=== PATIENT | female | born 1955 | race Caucasian/White ===

== ENCOUNTER 2018-02-03 06:18 | Day surgery (SDC) | payer OTHER ==
[~2018-02-03 06:18] MED LIST: Buffered Lidocaine 0.9% SYRIN* 5 ML/SYR SYRINGE INTRADERM ONE; Dexamethasone IV* 4 MG/ML 1 ML (4 MG) IV SLOW PU ONE; Famotidine IV* 10 MG/ML 2 ML (20 mg) IV ONE
[2018-02-03] MEDS ORDERED: Dexamethasone IV* 4 MG/ML 1 ML (4 MG) ONE (06:53)
[2018-02-03] MEDS ORDERED: Famotidine IV* 10 MG/ML 2 ML (20 mg) ONE (06:53)
[2018-02-03] MEDS ORDERED: Lidocain 1% EPI 1:100,000 * 30 ML MDV ONE (06:55)
[2018-02-03] MEDS ORDERED: Midazolam* 1 MG/ML 5 ML VIAL (5 MG) ONE (07:08)
[2018-02-03] MEDS ORDERED: fentaNYL* 50 MCG/ML 2 ML VIAL (100 MCG VIAL) ONE (07:08)
[2018-02-03] MEDS ORDERED: Ondansetron INJ* 2 MG/ML VIAL ONE (07:08)
[2018-02-03] MEDS ORDERED: Ketorolac INJ* 30 MG/ML 1 ML VIAL ONE (07:08)
[2018-02-03] MEDS ORDERED: Propofol* 10 MG/ML 20 ML BTL IV PUSH ONE (07:08)
[2018-02-03] MEDS ORDERED: Ropivacaine* 2 MG/ML 20 ML VIAL (0.2%) ONE (07:38)
[2018-02-03] MEDS ORDERED: DiMENhydriNATE IV* 50 MG/ML VIAL IV PUSH PRN (07:55)
[2018-02-03] MEDS ORDERED: Ondansetron INJ* 2 MG/ML VIAL IV PRN (07:55)
[2018-02-03] MEDS ORDERED: Naloxone* 0.4 MG/ML 1 ML VIAL IV PRN (07:55)
[2018-02-03 09:03] VITALS: BP 132/69
--- NOTE | 2018-02-03 09:47 | OP ---
OPERATIVE REPORT: DATE OF OPERATION: 02/03/18 DATE OF : 59 SURGEON: Ignacio Coates MD PROFESSIONAL ATHLETE: None. ANESTHESIOLOGIST: Dr. Colbert. ANESTHESIA: Local MAC. PRE-OP DIAGNOSES: 1. Right long trigger finger. 2. Right long finger tendon sheath mass. POST-OP DIAGNOSES: 1. Right long trigger finger. 2. Right long finger tendon sheath mass. OPERATIVE PROCEDURE: 1. Excision of right long finger tendon sheath mass. 2. Right long trigger finger release of A1 naina. INDICATIONS: Ni has a chronic trigger finger that has recurred despite injections. She has deve loped a nodule over the A1 naina that is quite large. We had talked about excising the nodule as it is quite bothersome to her and also addressing the trigger finger at the same setting. She understa nds the risks and benefits and wanted to proceed. ESTIMATED BLOOD LOSS: 2 mL. COMPLICATIONS: None. FINDINGS: See above and below. DESCRIPTION OF PROCEDURE: Ni was seen in the preoperative holding area. The correct site, side, and procedure were identified. We came back to the operating room. I infiltrated some long-acting local anesthetic. The arm was then prepped and draped in the usual fashion and a time-out was perfor med. The arm was exsanguinated with the Esmarch and the tourniquet inflated to 250 mmHg. I made an oblique incision in line with the palmar flexion crease over the A1 naina. Dissection was carried down and full-thickness flaps were raised off the tendon sheath and off the tendon sheath mass. The tendon s gena mass was excised with a combination of the knife and the tenotomy scissors and was handed off a s a specimen. I then incised the A1 naina off the right long finger. This was completed proximally and distally with a tenotomy scissors. The naina was very thickened. Once I had completely releas ed the naina and the finger was gliding smoothly, we irrigated out the wound. The skin was closed w ith 4-0 nylon suture. Soft dressings were applied. The tourniquet was deflated. She was taken to [facility] recovery room in stable condition. [id number]/[facility] #: [id number]
== END 2018-02-03 09:05 | disposition home or self-care (01) ==
LOC: OR 06:18
PROVIDERS: ATTEND Orthopaedic Surgery Hand Surgery
DX: M65.331 Trigger finger, right middle finger (principal); M67.843 Other specified disorders of tendon, right hand
CPT/HCPCS: 88304; J1100; J1885; J2250; J2405; J2704; J2795; J3010

== ENCOUNTER 2019-02-12 07:15 | Day surgery (SDC) | payer OTHER ==
[~2019-02-12 07:15] MED LIST changes: -Buffered Lidocaine 0.9% SYRIN* 5 ML/SYR SYRINGE INTRADERM ONE; +Buffered Lidocaine 1% SYRIN* 1 ML/SYRINGE INTRADERM ONE; -Dexamethasone IV* 4 MG/ML 1 ML (4 MG) IV SLOW PU ONE; -Famotidine IV* 10 MG/ML 2 ML (20 mg) IV ONE; +Lactated Ringers 1000 ML Bag* 1,000 ML IV SCH; +Sodium Citrate/Citric Acid* 15 ML UDC ONE; +Sodium Citrate/Citric Acid* 15 ML UDC PO ONE
[2019-02-12] MEDS ORDERED: ceFAZolin 2 GM PREMIX in ORs 2 GM/50 ML BAG ONE (07:24)
[2019-02-12] MEDS ORDERED: Lidocaine 1% MPF* 2 ML VIAL ONE (08:36)
[2019-02-12] MEDS ORDERED: Betamethasone INJ* 6 MG/ML 5 ML VIAL (30 MG) ONE (08:37)
[2019-02-12] MEDS ORDERED: Propofol* 10 MG/ML 20 ML BTL ONE (08:43)
[2019-02-12] MEDS ORDERED: Lidocaine 2% PF * 5 ML VIAL ONE (08:43)
[2019-02-12] MEDS ORDERED: Bupivacaine 0.25% SDV* 30 ML ONE (08:46)
[2019-02-12] MEDS ORDERED: fentaNYL* 50 MCG/ML 2 ML VIAL (100 MCG VIAL) ONE (08:56)
[2019-02-12] MEDS ORDERED: Dexamethasone IV* 4 MG/ML 1 ML (4 MG) ONE (09:09)
[2019-02-12] MEDS ORDERED: fentaNYL* 50 MCG/ML 2 ML VIAL (100 MCG VIAL) IV PRN (09:14)
[2019-02-12] MEDS ORDERED: DiMENhydriNATE IV* 50 MG/ML VIAL IV PUSH PRN (09:14)
[2019-02-12] MEDS ORDERED: Naloxone* 0.4 MG/ML 1 ML VIAL IV PRN (09:14)
[2019-02-12] MEDS ORDERED: EPHEDrine (Pressors)* 50 MG/ML VIAL ONE (09:30)
[2019-02-12] MEDS ORDERED: Ketorolac INJ* 15 MG/ML 1 ML VIAL IV PUSH ONE (10:59)
[2019-02-12] MEDS ORDERED: DiMENhydriNATE IV* 50 MG/ML VIAL ONE (11:25)
[2019-02-12 12:46] VITALS: BP 134/75
--- NOTE | 2019-02-12 14:40 | OP ---
DATE OF OPERATION: 02/12/19 - [facility] DATE OF : 59 SURGEON: Ignacio Coates MD NON FOOD RECEIVING CLERK: UMU Anton. An senior sales assistant was needed for the entirety of the procedure to aid in positioning of the arm and retraction. ANESTHESIOLOGIST: Dr. Baldwin. ANESTHESIA: General. PRE-OP DIAGNOSES: 1. Right thumb carpometacarpal degenerative joint disease. 2. Right trigger thumb. 3. Right thumb metacarpophalangeal joint hyperextension laxity. 4. Left trigger thumb. POST-OP DIAGNOSES: 1. Right thumb carpometacarpal degenerative joint disease. 2. Right trigger thumb. 3. Right thumb metacarpophalangeal joint hyperextension laxity. 4. Left trigger thumb. OPERATIVE PROCEDURE: 1. Right thumb carpometacarpal arthroplasty with trapeziectomy. 2. Right distally based split flexor carpi radialis tendon transfer with thumb suspension and tendon interposition. 3. Right trigger thumb release with release of A1 naina. 4. Right thumb metacarpophalangeal joint volar capsulodesis. 5. Left trigger thumb steroid injection. INDICATIONS: Ms. Thompson has the aforementioned conditions. She is looking to see if she can get some relief for thumb pain. I talked to her about her options as well as what we needed to do to increase the chance of having a good result with good public relations counselor strength. She understands the risk of all this and she wants to proceed. ESTIMATED BLOOD LOSS: 2 mL. COMPLICATIONS: None. FINDINGS: See above and below. DESCRIPTION OF PROCEDURE: Ms. Thompson was seen in the preoperative holding area. The correct site, side, and procedures were identified. We came back to the operating room where the arm was prepped and draped in the usual fashion and a time- out was performed. The arm was exsanguinated with the Esmarch and the tourniquet was inflated to 225 mmHg. I first made a 2 to 3 cm incision over the dorsal radial thumb base. Dissection was carried down through the subcutaneous tissue longitudinally to prevent any injury to the traversing sensory nerves. Full-thickness subperiosteal and capsular flaps were raised off the trapezium. Soft tissue about the edges of the trapezium was released. The trapezium was then excised in its entirety in a piecemeal fashion utilizing the rongeur. Once I had fully excised the trapezium, I analyzed the scapho-trapezoid joint. There was no degeneration there. I then used sequentially larger drill bit to create a bone tunnel from the dorsal radial thumb metacarpal base extending out the volar, ulnar, articular surface near the insertion of the FCR tendon onto the base of the second metacarpal. The wound was irrigated out. I then made a 1 cm transverse incision just over the FCR tendon, just proximal to the wrist flexion crease. The tendon sheath was released and the FCR tendon was brought up out of the wound. It was split longitudinally with a 15 blade and then a 26-gauge wire was passed into the tendon split. I made two more transverse wounds, each about 7 or 8 cm proximal to the last. The tendon sheath was released. A Raisa clamp was used to pass the 26-gauge wire under the skin up into the most proximal wound to release half of the FCR tendon at the musculotendinous junction. The free end of the tendon was freed up from any muscular remnants. It was then passed down into the thumb base wound using two 26-gauge wires. Tendon split was completed all the way to the base of the second metacarpal. The free end of the tendon was passed through the bone tunnel and back around the intact limb. Maximum tension was set as the tendon transfer was secured with three [id number] 3-0 Ethibond sutures, the first sewing all three limbs of the tendon transfer together, the second two sewing intact limb to intact limb. The remainder of the tendon was rolled up as a ball , secured with a stitch and then placed as an interposition just proximal to the metacarpal base. The wound was irrigated out. The capsule was closed with 4-0 Vicryl suture. All wounds were irrigated out. The skin was closed with 4- 0 nylon suture. With the arthroplasty and the tendon transfer done, I turned my attention to the MCP joint. I made a ulnarly based V-shaped flap and raised that full thickness off the tendon sheath taking care to preserve the sensory nerves. I first addressed the trigger thumb by releasing the A1 nania in its entirety utilizing the knife followed by the tenotomy scissors. Once I had fully released the A1 naina, I went ahead and checked for any triggering, there was none. The tendon was retracted out of the way. I then raised a distally based volar plate U-shaped flap. Once I had that fully mobilized, there was a lot of wear and tear underneath the radial sesamoid bone and so I went ahead and excised the radial sesamoid bone. I then placed 2 DePuy Mini Mitek suture anchors in the metacarpal neck just proximal to the metacarpal head. The 2-0 Ethibond suture was used to whipstitch up into the volar plate and then it was sewn down so that after both stitches have been tied off there was a nice 30-degree block to MP joint extension. Once I had secured the capsulodesis and I liked the tension and the amount of flexion the MP joint was in, I thought everything was looking good, so we irrigated out the wound and the skin was closed with 4-0 nylon suture. Please note that prior to beginning the surgery, we had a time-out, then I injected 1 mL of 1% lidocaine and 6 mg of betamethasone into the area of the left thumb A1 naina and tendon sheath. A Band-Aid was applied. With all the procedures done, I went ahead and injected 0.25% plain Marcaine around all of the right sided operative wounds. The wounds were dressed. A thumb spica splint stopping just distal to the IP joint was applied protecting the MP joint in 30 degrees of flexion, but allowing for some IP joint motion to prevent tendon adhesions. Tourniquet was deflated. She was taken to the recovery room in stable condition. [id number]/[facility] #: [id number] MTDAna
== END 2019-02-12 12:00 | disposition home or self-care (01) ==
LOC: OREAST 07:15
PROVIDERS: ATTEND Orthopaedic Surgery Hand Surgery
DX: M18.11 Unilateral primary osteoarthritis of first carpometacarpal joint, right hand (principal); M24.241 Disorder of ligament, right hand; M65.311 Trigger thumb, right thumb; M65.312 Trigger thumb, left thumb; Z87.891 Personal history of nicotine dependence; F41.9 Anxiety disorder, unspecified
CPT/HCPCS: 88304; 88311; A9270-GY; C1713; J0690; J0702; J1100; J1240; J2704; J3010; J3490